=== PATIENT | female | born 1985 | race Caucasian/White ===

== ENCOUNTER → 2018-06-18 | Outpatient (CLI) | payer OTHER ==
[~2018-06-18] MED LIST: BUPIVACAINE 0.5% 30 ML SDV ONE; LIDOCAINE 1% 300 MG/30 ML SDV ONE
== END ==
LOC: FIMAGING 10:02
PROVIDERS: ATTEND Surgery
DX: N63.10 Unspecified lump in the right breast, unspecified quadrant (principal)

== ENCOUNTER 2018-07-17 11:33 | Outpatient (CLI) | payer OTHER ==
[2018-07-17] MEDS ORDERED: FLUMAZENIL 0.5 MG/5 ML MDV IVP PRN ×2 (11:35→13:06)
[2018-07-17] MEDS ORDERED: NALOXONE HCL 0.4 MG/ML INJ IVP PRN ×2 (11:35→13:06)
[2018-07-17] MEDS ORDERED: GADOBUTROL 10 ML VIAL IVP ONE (12:27)
[2018-07-17] MEDS ORDERED: MIDAZOLAM 2 MG/2 ML VIAL ONE (12:44)
[2018-07-17] MEDS ORDERED: FLUMAZENIL 0.5 MG/5 ML MDV IVP ONE (12:44)
[2018-07-17] MEDS ORDERED: NALOXONE HCL 0.4 MG/ML INJ ONE (12:45)
[2018-07-17] MEDS ORDERED: fentaNYL 100 MCG/2 ML INJ ONE (12:45)
[2018-07-17] MEDS ORDERED: BUPIVACAINE 0.5% 30 ML SDV ONE (12:46)
[2018-07-17] MEDS ORDERED: LIDOCAINE 1% 5 ML SDV ONE (12:46)
--- NOTE | 2018-07-17 12:53 | PDGENHP ---
History & Physical Chief Complaint: breast mass Cardiorespiratory Assessment: heart regular, lungs clear
--- NOTE | 2018-07-17 12:53 | PDPROPOC ---
Sedation Plan of Care Sedation Plan of Care: vital signs stable, mental status noted, patient educated of risks, benefits, alternatives, patient can tolerate sedation ASA Classification: ASA 1 Planned drugs: fentanyl, midazolam Mallampati Score: Class 1 Mallampati Reference Image: Patient passed 3-3-2 rule?: Yes
[2018-07-17] MEDS ORDERED: fentaNYL 100 MCG/2 ML INJ IVP PRN (13:06)
[2018-07-17] MEDS ORDERED: MIDAZOLAM 2 MG/2 ML VIAL IVP PRN (13:06)
[2018-07-17] MEDS ORDERED: NS 1,000 ML IV SCH (13:15)
[2018-07-17 16:12] VITALS: BP 111/59
[2018-07-17] MEDS: fentaNYL 100 MCG/2 ML INJ IVP PRN (16:14)
[2018-07-17] MEDS: MIDAZOLAM 2 MG/2 ML VIAL IVP PRN (16:15)
== END 2018-07-17 15:30 | disposition home or self-care (01) ==
LOC: FIMAGING 11:33
PROVIDERS: ATTEND Surgery
PROC: 0HBT3ZX Excision of Right Breast, Percutaneous Approach, Diagnostic (ICD-10-PCS; principal; 2018-07-17)
DX: D24.1 Benign neoplasm of right breast (principal)
CPT/HCPCS: A9585; J2250; J2310; J3010